=== PATIENT | female | born 1985 | race African-American/Black ===

== ENCOUNTER 2018-05-19 05:31 | Day surgery (SDC) | payer OTHER ==
[2018-05-15 20:02] LABS: BASO % 0.5 % (0-2.0); EOS % 1.9 % (0-4.5); HEMATOCRIT 39.4 % (32.4-45.2); HEMOGLOBIN 13.3 GM/dL (10.7-15.3); LYMPH % 30.7 % (8-40); MCHC 33.8 g/dl (32.0-36.0); MEAN CELL VOLUME 91.5 fl (80-96); MEAN PLT VOLUME 8.2 fl (7.5-11.1); MONO % 9.5 % (3.8-10.2); NEUT % 57.4 % (42.8-82.8); PLATELET COUNT 346 K/MM3 (134-434); RBC 4.31 M/mm3 (3.60-5.2); WHITE BLOOD COUNT 7.3 K/mm3 (4.0-10.0)
[2018-05-15 20:15] LABS: INR 1.1 (0.83-1.09); PROTHROMBIN TIME (PATIENT) 12.4 SEC (9.7-13.0)
[2018-05-15 20:46] LABS: ALBUMIN 4.1 g/dl (3.4-5.0); ALK PHOS 100 U/L (45-117); ANION GAP 9 MMOL/L (8-16); BILIRUBIN,TOTAL 0.3 mg/dL (0.2-1.0); BLOOD UREA NITROGEN 10 mg/dL (7-18); CALCIUM 9.1 mg/dL (8.5-10.1); CHLORIDE 101 mmol/L (98-107); CO2 28 mmol/L (21-32); CREATININE 0.6 mg/dL (0.55-1.02); GLUCOSE,RANDOM 87 mg/dL (74-106); POTASSIUM 4.2 mmol/L (3.5-5.1); SGOT/AST 25 U/L (15-37); SGPT/ALT 54 U/L (12-78); SODIUM 138 mmol/L (136-145)
[2018-05-18 09:04] VITALS: BMI 33.6
[2018-05-19] MEDS ORDERED: LIDOCAINE HCL 2% (20ML MULTI-DOSE VIAL) NR ONE (08:37)
[2018-05-19] MEDS ORDERED: BUPIVACAINE HCL/PF 0.25% (2.5MG/ML) 10 ML VIAL ONE (09:16)
[2018-05-19] MEDS ORDERED: MIDAZOLAM HCL 2 MG/2 ML SINGLE DOSE VIAL ONE ×2 (09:20→11:07)
[2018-05-19] MEDS ORDERED: PROPOFOL 20 ML ONE ×2 (09:24)
[2018-05-19] MEDS ORDERED: ROCURONIUM BROMIDE 50 MG/5 ML VIAL ONE (09:25)
[2018-05-19] MEDS ORDERED: ceFAZolin SODIUM 1 GM VIAL IVPB ONE (09:27)
[2018-05-19] MEDS ORDERED: ceFAZolin SODIUM 1 GM VIAL ONE (09:45)
[2018-05-19] MEDS ORDERED: LIDOCAINE HCL 1% PRESERVATIVE FREE - 30ML VIAL IJ ONE (09:46)
[2018-05-19] MEDS ORDERED: DEXAMETHASONE SOD PHOSPHATE 4 MG/1 ML VIAL ONE (09:50)
[2018-05-19] MEDS ORDERED: BACITRACIN 0.9 GM PACKET TP ONE (10:00)
[2018-05-19] MEDS ORDERED: BACITRACIN 15 GM TUBE TOPICAL OINTMENT ONE (10:13)
[2018-05-19] MEDS ORDERED: NEOSTIGMINE METHYLSULFATE 0.5 MG/ML - 10 ML MDV ONE (10:22)
[2018-05-19] MEDS ORDERED: ONDANSETRON 4 MG/2 ML VIAL IVPUSH PRN (10:38)
[2018-05-19] MEDS ORDERED: LACTATED RINGERS SOLUTION 1,000 ML IV SCH ×2 (10:45)
--- NOTE | 2018-05-19 11:35 | OP ---
DATE OF OPERATION: 05/19/2018 SURGICAL ATTENDING: Tess Garvey MD PREOPERATIVE DIAGNOSIS: Right scalp mass. POSTOPERATIVE DIAGNOSIS: Right scalp mass. ANESTHESIA: General endotracheal. PROCEDURE: Excision of right scalp mass. DESCRIPTION OF PROCEDURE: The patient was taken in to the operating room, placed in a supine position, endotracheally intubated. The eyes were tapled. All monitors were placed. She was then carefully turned into the prone position onto a padded operating room table with the head in a headrest. All pressure points were checked and protected. The arms were tucked to the side. The small amount of hair was shaved over the mass, and the skin was then prepped and draped in the usual sterile fashion. Local anesthesia was administered. An elliptical incision was made excising a wedge of skin over the mass. This was carried down through subcutaneous tissues and the underlying mass was excised. The mass and the overlying skin wedge were removed and sent to Pathology. Hemostasis was achieved with electrocautery. The wound was then closed in 2 layers with interrupted Vicryl sutures and a running Prolene suture for skin. Bacitracin was placed. The patient was then turned into the supine position, extubated, awakened, and taken to recovery in stable condition. Dr. Garvey, the attending surgeon, was present throughout the entire procedure. TESS GARVEY M.D. [id number]
[2018-05-19 12:19] VITALS: TEMP 97.9
[2018-05-19 16:10] VITALS: PULSE 81
[2018-05-19 16:27] VITALS: BP 109/68
--- NOTE | 2018-05-22 17:15 | PATH ---
Surgical Pathology Report Patient Name: SOFIA SCHAEFFER [facility]. Rec. #: [id number] /Age/Gender: 1985 (Age: 32) / F Account: [id number] Location: [facility] SURGICAL Taken: 05/19/2018 Received: 05/19/2018 Reported: 05/22/2018 Physicians: Rick Dodge M.D. Specimen(s) Received RIGHT SCALP MASS Clinical History Scalp mass Final Diagnosis SCALP, RIGHT, MASS, EXCISION: MATURE FIBROADIPOSE TISSUE CONSISTENT WITH LIPOMA. SKIN WITHOUT SIGNIFICANT PATHOLOGIC FINDINGS. Electronically Signed Bella Brewer M.D. Gross Description Received in formalin labeled "right scalp mass," is a 4.0 x 3.5 x 1.5 cm portion of yellow, lobulated adipose tissue which is surfaced by a 5.7 x 1.3 cm burks, elliptical, unremarkable portion of skin. Sectioning reveals homogeneous yellow, smooth fat. No areas of hemorrhage or necrosis are identified. Tab Builder sections are submitted in 3 cassettes as follows: 1-skin; 4-5-dludnicahgxryg soft tissue mass. /05/19/2018 saudi05/19/2018
== END 2018-05-19 13:30 | disposition home or self-care (01) ==
LOC: JASU-SURG 05:31
PROVIDERS: ATTEND Surgery
PROC: 0JB00ZZ Excision of Scalp Subcutaneous Tissue and Fascia, Open Approach (ICD-10-PCS; principal; 2018-05-19 09:00)
DX: D17.0 Benign lipomatous neoplasm of skin and subcutaneous tissue of head, face and neck (principal)
CPT/HCPCS: 36415; 71046-TC-FY; 80053; 84703; 85025; 85610; 88304-TC; 94760